=== PATIENT | male | born 1965 | race Caucasian/White ===

== ENCOUNTER 2021-04-04 13:48 | Observation (INO) | payer MEDICAID ==
[~2021-04-04] VITALS: Ht 180.3 cm; Wt 86.8 kg
[2021-04-04 15:05] LABS: BASO # 0.1 K/mm3 (0.0-0.2); BASO % 0.7 % (0.0-2.0); EOS # 0.2 K/mm3 (0.0-0.7); EOS % 2.5 % (0.0-4.0); GRAN # 6.1 K/mm3 (1.4-6.5); GRAN % 65.5 % (42.2-75.2); HEMATOCRIT 39.7 % (42.0-52.0); HEMOGLOBIN 13.6 g/dl (13.5-18.0); LYMPH # 2.3 K/mm3 (1.2-3.4); LYMPH % 24.7 % (20.0-51.0); MEAN CELL VOLUME 85 fl (80.0-100.0); MEAN CORPUSCULAR HEMOGLOBIN 29 pg (27-31); MEAN CORPUSCULAR HGB CONC 34 g/dl (33.0-37.0); MEAN PLATELET VOLUME 10.2 fl (7.4-10.4); MONO # 0.6 K/mm3 (0.1-0.6); MONO % 6.2 % (1.7-9.3); PLATELET COUNT 266 K/mm3 (130-400); RED BLOOD COUNT 4.68 M/mm3 (4.20-5.60); REDCELL DISTRIBUTION WIDTH-CV 13.1 % (11.5-14.5)
[2021-04-04 15:10] LABS: INR 1.1 (0.8-3.0); PROTHROMBIN TIME 11.9 SECONDS (9.7-12.8)
[2021-04-04 15:13] LABS: PARTIAL THROMBOPLASTIN TIME 31.5 SECONDS (26.0-37.0)
[2021-04-04 15:18] LABS: ALBUMIN 3.5 gm/dL (3.5-5.0); BILIRUBIN,TOTAL 0.4 mg/dL (0.2-1.2); CALCIUM 8.7 mg/dL (8.4-10.2); CREATININE, serum 1.09 mg/dL (0.72-1.25); TOTAL PROTEIN 7.4 gm/dL (6.2-8.1)
[2021-04-04 15:27] LABS: TROPONIN-I 0.049 ng/mL (0.00-0.033)
[2021-04-04 17:52] LABS: TRICYCLIC ANTIDEPRESS URINE NEGATIVE
[2021-04-04 22:40] VITALS: BP 157/90; PULSE 103; TEMP 98.3
[2021-04-04] MEDS ORDERED: MUCINEX 60600 MG/TA1 PO (22:42)
[2021-04-04] MEDS ORDERED: VITAMINC500CH (22:43)
--- NOTE | 2021-04-05 00:24 | NUR ---
PATIENT UP TO ROOM 350 AT 2130. SPENT ABOUT AN HOUR ON THE TOILET TRYING TO HAVE A BM. STATES HE HAD A SMALL BROWN BM. ASSESSMENT AND MED RX COMPLETED. BARBER TO DD WITH CLEAR YELLOW URINE OUTPUT. TELE APPLIED. 20 G TO R AC PATENT AND FLUSHES EASILY. LABORED BREATHING NOTED WITH COARSE LUNG SOUNDS. CALL LIGHT WITHIN REACH.
[2021-04-05 04:06] VITALS: BP 149/88; PULSE 99; TEMP 97.3
--- NOTE | 2021-04-05 06:50 | NUR ---
awake resting in bed, bedside shift report received from DORIS Anderson
[2021-04-05 07:15] LABS: BASO % 0.1 % (0.0-2.0); GRAN # 6.6 K/mm3 (1.4-6.5); HEMATOCRIT 40.5 % (42.0-52.0); LYMPH # 0.6 K/mm3 (1.2-3.4); LYMPH % 7.8 % (20.0-51.0); MEAN CELL VOLUME 84 fl (80.0-100.0); MEAN CORPUSCULAR HEMOGLOBIN 29 pg (27-31); MEAN CORPUSCULAR HGB CONC 35 g/dl (33.0-37.0); MEAN PLATELET VOLUME 10.8 fl (7.4-10.4); MONO # 0.1 K/mm3 (0.1-0.6); MONO % 1.8 % (1.7-9.3); PLATELET COUNT 303 K/mm3 (130-400); RED BLOOD COUNT 4.82 M/mm3 (4.20-5.60); REDCELL DISTRIBUTION WIDTH-CV 12.9 % (11.5-14.5)
[2021-04-05 07:33] LABS: CALCIUM 9.1 mg/dL (8.4-10.2); CHOLESTEROL RISK RATIO 3.3; CREATININE, serum 1.13 mg/dL (0.72-1.25)
[2021-04-05 07:38] VITALS: BP 154/89; PULSE 91; TEMP 97.3
--- NOTE | 2021-04-05 08:30 | NUR ---
awake reting in bed and has had breakfast and tolerated well, full assessment completed, see interventions for further info, bowie catheter discontinued, explained to him the importance of using the urinal and letting staff know so his output can be recorded, verbalizes understanding
--- NOTE | 2021-04-05 10:40 | NUR ---
appears to be dozing, awakened and given meds, given paiten teducation on amlodipine
[2021-04-05 11:14] VITALS: BP 134/78; PULSE 93; TEMP 97.3
--- NOTE | 2021-04-05 11:44 | NUR ---
Dr George in to see patient
--- NOTE | 2021-04-05 11:59 | NUR ---
First visit from the retail warehouse supervisor. No needs right now.
--- NOTE | 2021-04-05 13:08 | NUR ---
appears to be sleeping, in bed with eyes closed, resp quiet and easy
--- NOTE | 2021-04-05 13:44 | NUR ---
sitting up in bed eating lunch, denies needs
--- NOTE | 2021-04-05 15:36 | NUR ---
in bed reviewing CHF information given to him yesterday, informed him hospitalist wants him to stay another day, revebalizes understanding, friend at bedside
[2021-04-05 15:47] VITALS: BP 134/69; PULSE 96; TEMP 97.2
--- NOTE | 2021-04-05 16:02 | NUR ---
Group Exercise Instructor attempted to meet with patient but was unable to wake him up. SW will follow up again tomorrow.
--- NOTE | 2021-04-05 17:12 | NUR ---
remains resting in bed visiting with his female friend
--- NOTE | 2021-04-05 18:14 | NUR ---
sitting up eating supper
--- NOTE | 2021-04-05 18:57 | NUR ---
bedside shift report given to DORIS Flores
[2021-04-05 20:33] VITALS: BP 144/72; PULSE 110; TEMP 97.9
--- NOTE | 2021-04-05 21:00 | NUR ---
Pt resting in bed upon entering room. Pts SO was in bed with him. Explained the visitation policy with them. She was understandable and got up and started gathering her belongings. Pt was very upset. Stated she wasn't hurting anything and that she was not safe to drive and wasn't suppose to be driving. He stated that it was going to be our fault if she gets in a wreck on her way home. Pt is unhappy about being here stating we are just keeping him another day to get more money. Pt went on for quite some time this way, I stated that we were not holding him here just to get his money. SO then started to make comments that I shouldn't be saying things like that in my profession. Pt continued on with comments about her not being able to stay, how she shouldn't be driving and that she doesn't even know her way around. I went on with my assessment, freshing ice water etc. Upon completing, asked pt if there was anything he needed. Pt did request a breathing treatment in which I did call RT.
[2021-04-06 00:29] VITALS: BP 134/66; PULSE 87; TEMP 97.8
[2021-04-06 04:25] VITALS: BP 141/72; PULSE 82; TEMP 97.9
--- NOTE | 2021-04-06 06:14 | NUR ---
Pt slept throughout the night, no needs verbalized
[2021-04-06 07:19] VITALS: BP 128/65; PULSE 90; TEMP 97.4
--- NOTE | 2021-04-06 08:33 | NUR ---
Pt assessment complete. Pt sleeping in bed upon entry, but arouses to voice. He is A/O x4. His breathing is even and unlabored on RA. Pt reports some dyspnea with exertion. Denies any pain at this time. No N/V. POC discussed with patient as well as accurate I&O's, he verbalizes understanding. Pt has no further needs at this time. Call light wtihin reach.
--- NOTE | 2021-04-06 09:24 | NUR ---
Lead Recreation Assistant and SW student met with patient to discuss discharge planning. Patient lives in a camper outside of [place] with his girlfriend, Alysha. Patient does not have a current primary care physician or take any regular medications. Patient does not use any DME and is independent with ADLS. Patient does not have advance directives. Patient states he is not currently and is a . Patient has one adult child, Yeimi Leung who lives in [place]. Patient advised he does not have her most recent phone number, he just contacts her through [employer]. Patient reports his sister, Lin (ph#[phone]) lives here in [place] with their mother, Ida Castillo, who patient reports is in poor health. Patient does not wish to complete DPOA-HC at this time. SW addressed patient's positive UDS for methamphetamines. Patient is not interested in any drug and alcohol resources at this time. Patient plans to return home upon discharge. Discharge Plan: Home
[2021-04-06] MEDS ORDERED: NICODERM C21 MG/PATC TD (10:30)
[2021-04-06] MEDS ORDERED: LIPITOR 40MG TA40 MG PO (10:30)
[2021-04-06] MEDS ORDERED: PRINIVIL10 MG PO (10:30)
[2021-04-06] MEDS ORDERED: LASIX 20MG TABL20 MG PO (10:31)
[2021-04-06] MEDS ORDERED: ASPIRIN E.C. 8181 MG PO (10:31)
--- NOTE | 2021-04-06 12:07 | NUR ---
Discharge instructions and paperwork reviewed with patient. All questions answered at this time. IV to RAC dc'd catheter tip intact. Pt walked out of facility by staff at this time.
== END 2021-04-06 12:08 | disposition home or self-care (01) ==
LOC: COL.ER 13:48 → SURG 15:47
PROVIDERS: Emergency Medicine; Physician Assistant; ADMIT Student in an Organized Health Care Education/Training Program
DX: I11.0 Hypertensive heart disease with heart failure (principal); I50.21 Acute systolic (congestive) heart failure; R79.89 Other specified abnormal findings of blood chemistry; I71.4 Abdominal aortic aneurysm, without rupture; E78.5 Hyperlipidemia, unspecified; F17.210 Nicotine dependence, cigarettes, uncomplicated; F12.90 Cannabis use, unspecified, uncomplicated; F15.10 Other stimulant abuse, uncomplicated; Z20.822 Contact with and (suspected) exposure to COVID-19; T38.0X6A Underdosing of glucocorticoids and synthetic analogues, initial encounter; Z91.128 Patient's intentional underdosing of medication regimen for other reason
CPT/HCPCS: 99222-AI; 99239; A4314; G0378; J0456; J1650; J1940; J2930; J7050; J7512; Q9967

== ENCOUNTER → 2021-06-06 | Outpatient (CLI) | payer SELFPAY ==
[~2021-06-06] VITALS: Ht 180.3 cm; Wt 83.2 kg
[~2021-06-06] MED LIST: ASPIRIN 81M81 MG/TA2 PO; ASPIRIN E.C. 8181 MG PO; LASIX 20MG TABL20 MG PO; LIPITOR 40MG TA40 MG PO; MUCINEX 60600 MG/TA1 PO; NICODERM C21 MG/PATC TD; PRINIVIL10 MG PO; TOPROL XL 25MG25 MG PO; VITAMINC500CH
[2021-06-06 12:48] VITALS: BP 147/83; PULSE 84
[2021-06-06 12:49] VITALS: BP 145/84; PULSE 83
[2021-06-06 12:50] VITALS: BP 146/85; PULSE 82
[2021-06-06 12:51] VITALS: BP 135/85; PULSE 76
== END ==
LOC: COL.CARD 10:45
DX: I50.20 Unspecified systolic (congestive) heart failure (principal)
CPT/HCPCS: A9500; J2785

== ENCOUNTER → 2021-06-28 | Outpatient (CLI) | payer SELFPAY | LOC: COL.VAS 14:15 | DX: I11.0 Hypertensive heart disease with heart failure (principal); I50.20 Unspecified systolic (congestive) heart failure ==

== ENCOUNTER 2021-09-10 03:22 | Emergency (ER) | payer SELFPAY ==
[~2021-09-10] VITALS: Ht 177.8 cm; Wt 81.8 kg
[2021-09-10 03:34] VITALS: TEMP 97.4
[2021-09-10 04:05] LABS: COLLECTION METHOD CLEAN CATCH
[2021-09-10 04:08] LABS: BASO # 0.1 K/mm3 (0.0-0.2); BASO % 1.1 % (0.0-2.0); EOS # 0.2 K/mm3 (0.0-0.7); EOS % 2.5 % (0.0-4.0); GRAN % 46.3 % (42.2-75.2); HEMATOCRIT 43.1 % (42.0-52.0); HEMOGLOBIN 15.1 g/dl (13.5-18.0); LYMPH # 3.5 K/mm3 (1.2-3.4); LYMPH % 40.9 % (20.0-51.0); MEAN CELL VOLUME 84 fl (80.0-100.0); MEAN CORPUSCULAR HEMOGLOBIN 30 pg (27-31); MEAN CORPUSCULAR HGB CONC 35 g/dl (33.0-37.0); MEAN PLATELET VOLUME 9.8 fl (7.4-10.4); MONO # 0.8 K/mm3 (0.1-0.6); PLATELET COUNT 273 K/mm3 (130-400); RED BLOOD COUNT 5.11 M/mm3 (4.20-5.60); REDCELL DISTRIBUTION WIDTH-CV 12.4 % (11.5-14.5)
[2021-09-10 04:14] LABS: MUCOUS Present (NOT PRESENT); PH 5 (5-8); SQUAMOUS EPITHELIAL None Seen /hpf (0-10); URINE APPEARANCE Hazy (CLEAR/HAZY); URINE BACTERIA None Seen /hpf (NONE SEEN); URINE BILIRUBIN Negative (NEGATIVE); URINE BLOOD Negative (NEGATIVE); URINE COLOR Yellow (YELLOW); URINE GLUCOSE Negative (NEGATIVE); URINE KETONE Trace (NEGATIVE); URINE LEUKOCYTE ESTERASE Negative (NEGATIVE); URINE NITRATE Negative (NEGATIVE); URINE PROTEIN(semi-quant) Negative (NEGATIVE); URINE RBC None Seen /hpf (0-2)
[2021-09-10 04:28] LABS: ALBUMIN 3.9 gm/dL (3.5-5.0); BILIRUBIN,TOTAL 0.4 mg/dL (0.2-1.2); CALCIUM 9.6 mg/dL (8.4-10.2); CREATININE, serum 1.36 mg/dL (0.72-1.25); POTASSIUM 3.6 mmol/L (3.5-4.5)
[2021-09-10] MEDS ORDERED: MIRALAX PA17 GM/Dose PO (06:41)
[2021-09-10 07:00] VITALS: BP 123/67; PULSE 69
== END 2021-09-10 07:00 | disposition home or self-care (01) ==
LOC: COL.ER 03:22
PROVIDERS: Emergency Medicine
DX: K59.00 Constipation, unspecified (principal); R94.4 Abnormal results of kidney function studies; Z28.310 Unvaccinated for COVID-19
CPT/HCPCS: J1885; J2270; J2405; J7030; Q9967

== ENCOUNTER 2023-07-10 01:48 | Emergency (ER) | payer OTHER, MEDICAID ==
[~2023-07-10] VITALS: Ht 180.3 cm; Wt 86.4 kg
[~2023-07-10 01:48] MED LIST changes: +CEFTIN500 MG PO; +MIRALAX PA17 GM/Dose PO; +PROAIR HFA0.09 MG/AC IH; +TAMIFLU 75MG75 MG PO
[2023-07-10 01:56] VITALS: TEMP 98.1
[2023-07-10] MEDS ORDERED: Morphine 4 MG/ML VIAL IV ONE ×2 (02:15→03:15)
[2023-07-10] MEDS ORDERED: NS 1,000 ML IV ONE (02:15)
[2023-07-10] MEDS ORDERED: Ondansetron 4 MG/2 ML VIAL IV ONE (02:15)
[2023-07-10 02:27] LABS: COLLECTION METHOD CLEAN CATCH
[2023-07-10 02:33] LABS: URINE APPEARANCE CLEAR (CLEAR/HAZY); URINE BLOOD NEGATIVE (NEGATIVE); URINE COLOR YELLOW (YELLOW); URINE GLUCOSE NEGATIVE (NEGATIVE); URINE KETONE NEGATIVE (NEGATIVE); URINE NITRATE NEGATIVE (NEGATIVE); URINE PROTEIN(semi-quant) NEGATIVE (NEGATIVE)
[2023-07-10 02:34] LABS: BASO # 0.1 K/mm3 (0.0-0.2); BASO % 0.6 % (0.0-2.0); EOS # 0.2 K/mm3 (0.0-0.7); EOS % 2.1 % (0.0-4.0); GRAN # 6.9 K/mm3 (1.4-6.5); GRAN % 72.8 % (42.2-75.2); HEMATOCRIT 42.9 % (42.0-52.0); HEMOGLOBIN 14.9 g/dl (13.5-18.0); LYMPH # 1.7 K/mm3 (1.2-3.4); LYMPH % 17.6 % (20.0-51.0); MEAN CELL VOLUME 88 fl (80.0-100.0); MEAN CORPUSCULAR HEMOGLOBIN 31 pg (27-31); MEAN CORPUSCULAR HGB CONC 35 g/dl (33.0-37.0); MONO # 0.6 K/mm3 (0.1-0.6); MONO % 6.4 % (1.7-9.3); PLATELET COUNT 274 K/mm3 (130-400); RED BLOOD COUNT 4.86 M/mm3 (4.20-5.60); REDCELL DISTRIBUTION WIDTH-CV 13.2 % (11.5-14.5)
[2023-07-10 02:49] LABS: ALBUMIN 3.5 g/dL (3.5-5.0); BILIRUBIN,TOTAL 0.4 mg/dL (0.2-1.2); CALCIUM 9.4 mg/dL (8.4-10.2); CREATININE, serum 1.42 mg/dL (0.72-1.25); POTASSIUM 4.4 mEq/L (3.5-4.5); TOTAL PROTEIN 7.3 g/dl (6.2-8.1)
[2023-07-10] MEDS ORDERED: NS 100 ML IV SCH (03:09)
[2023-07-10] MEDS ORDERED: Iodixanol-320 100 ML BOTTLE IV ONE (03:09)
[2023-07-10 03:19] LABS: C-REACTIVE PROTEIN 2.39 mg/dL (0.00-0.50); MAGNESIUM 1.8 mg/dL (1.6-2.6)
[2023-07-10] MEDS ORDERED: LIDODERM 5% PATC1 EA TP (04:02)
[2023-07-10] MEDS ORDERED: FLEXERIL 1010 MG/TAB PO (04:02)
[2023-07-10 04:07] VITALS: BP 108/65; PULSE 80
[2023-07-10] MEDS ORDERED: Lidocaine 4% Topical Patch TP ONE (04:15)
[2023-07-10] MEDS ORDERED: Cyclobenzaprine 10 MG TAB PO ONE (04:15)
== END 2023-07-10 04:24 | disposition home or self-care (01) ==
LOC: COL.ER 01:48
PROVIDERS: Emergency Medicine
DX: S39.012A Strain of muscle, fascia and tendon of lower back, initial encounter (principal); X58.XXXA Exposure to other specified factors, initial encounter
CPT/HCPCS: J2270; J2405; J7030; Q9967

== ENCOUNTER 2023-07-16 19:15 | Emergency (ER) | payer OTHER, MEDICAID ==
[~2023-07-16] VITALS: Ht 177.8 cm; Wt 86.4 kg
[~2023-07-16 19:15] MED LIST changes: +FLEXERIL 1010 MG/TAB PO; +LIDODERM 5% PATC1 EA TP
[2023-07-16 19:20] VITALS: TEMP 98.3
[2023-07-16] MEDS ORDERED: Albuterol/Ipratropium 3 MG-0.5 MG/3 ML Neb Soln IH ONE (20:00)
[2023-07-16 20:07] LABS: BASO # 0.1 K/mm3 (0.0-0.2); BASO % 0.9 % (0.0-2.0); EOS # 0.1 K/mm3 (0.0-0.7); EOS % 1.6 % (0.0-4.0); GRAN # 6.2 K/mm3 (1.4-6.5); GRAN % 72.1 % (42.2-75.2); HEMATOCRIT 40.1 % (42.0-52.0); HEMOGLOBIN 13.6 g/dl (13.5-18.0); LYMPH # 1.6 K/mm3 (1.2-3.4); LYMPH % 18.8 % (20.0-51.0); MEAN CELL VOLUME 91 fl (80.0-100.0); MEAN CORPUSCULAR HEMOGLOBIN 31 pg (27-31); MEAN CORPUSCULAR HGB CONC 34 g/dl (33.0-37.0); MEAN PLATELET VOLUME 10.6 fl (7.4-10.4); MONO # 0.5 K/mm3 (0.1-0.6); PLATELET COUNT 261 K/mm3 (130-400); RED BLOOD COUNT 4.43 M/mm3 (4.20-5.60); REDCELL DISTRIBUTION WIDTH-CV 13.8 % (11.5-14.5)
[2023-07-16 20:25] LABS: ALANINE AMINOTRANSFERASE 64 U/L (0-55); ALBUMIN 3.6 g/dL (3.5-5.0); ALCOHOL(ethanol),MEDICAL < 10 mg/dL (0-10); ALKALINE PHOSPHATASE 102 U/L (40-150); ANION GAP 12 mmol/L (7-16); AST,SGOT 59 U/L (5-34); BILIRUBIN,TOTAL 0.4 mg/dL (0.2-1.2); BLOOD UREA NITROGEN 27 mg/dL (8-26); C-REACTIVE PROTEIN 1.92 mg/dL (0.00-0.50); CALCIUM 9.4 mg/dL (8.4-10.2); CHLORIDE 107 mEq/L (98-107); GLUCOSE 72 mg/dL (70-99); MAGNESIUM 2.1 mg/dL (1.6-2.6); POTASSIUM 4.8 mEq/L (3.5-4.5); SODIUM 140 mEq/L (136-145); TOTAL PROTEIN 7.8 g/dl (6.2-8.1)
[2023-07-16 20:30] LABS: PROTHROMBIN TIME 10.9 SECONDS (9.7-12.8)
[2023-07-16 20:31] LABS: TROPONIN-I 0.021 ng/mL (0.00-0.033)
[2023-07-16 20:33] LABS: PARTIAL THROMBOPLASTIN TIME 31.7 SECONDS (26.0-37.0)
[2023-07-16] MEDS ORDERED: Albuterol/Ipratropium 3 MG-0.5 MG/3 ML Neb Soln IH SCH (22:00)
[2023-07-16] MEDS ORDERED: predniSONE 20 MG TAB PO ONE (22:45)
[2023-07-16] MEDS ORDERED: levoFLOXacin 750 MG TAB PO ONE (22:45)
[2023-07-16] MEDS ORDERED: LEVAQUIN 750MG750 M1 PO (22:54)
[2023-07-16] MEDS ORDERED: PREDNISONE20 MG PO (22:54)
[2023-07-16 23:19] VITALS: BP 133/84; PULSE 80
== END 2023-07-16 23:20 | disposition home or self-care (01) ==
LOC: COL.ER 19:15
PROVIDERS: Emergency Medicine
DX: R41.82 Altered mental status, unspecified (principal); J44.1 Chronic obstructive pulmonary disease with (acute) exacerbation; F17.200 Nicotine dependence, unspecified, uncomplicated
CPT/HCPCS: J7512

== ENCOUNTER 2023-08-23 15:54 | Inpatient (IN) | payer MEDICAID ==
[~2023-08-23] VITALS: Ht 177.8 cm; Wt 86.0 kg
[~2023-08-23 15:54] MED LIST changes: +LEVAQUIN 750MG750 M1 PO; +PREDNISONE20 MG PO
[2023-08-23] MEDS ORDERED: ACYCLOVIR IV ONE (16:45)
[2023-08-23] MEDS ORDERED: NS IV ONE (16:45)
[2023-08-23] MEDS ORDERED: cefTRIAXone 2 G in Water For Injection,Sterile 20 ML IV SCH (17:00)
[2023-08-23] MEDS ORDERED: cefTRIAXone 2 G in Water For Injection,Sterile 20 ML IV ONE (17:15)
[2023-08-23 17:19] LABS: BASO # 0.1 K/mm3 (0.0-0.2); BASO % 0.6 % (0.0-2.0); EOS % 0.3 % (0.0-4.0); GRAN # 7.9 K/mm3 (1.4-6.5); GRAN % 88.1 % (42.2-75.2); HEMATOCRIT 41.1 % (42.0-52.0); HEMOGLOBIN 14.6 g/dl (13.5-18.0); LYMPH # 0.7 K/mm3 (1.2-3.4); MEAN CELL VOLUME 87 fl (80.0-100.0); MEAN CORPUSCULAR HEMOGLOBIN 31 pg (27-31); MEAN CORPUSCULAR HGB CONC 36 g/dl (33.0-37.0); MONO # 0.2 K/mm3 (0.1-0.6); MONO % 2.3 % (1.7-9.3); PLATELET COUNT 290 K/mm3 (130-400); RED BLOOD COUNT 4.74 M/mm3 (4.20-5.60); REDCELL DISTRIBUTION WIDTH-CV 12.7 % (11.5-14.5)
[2023-08-23] MEDS ORDERED: Ondansetron 4 MG/2 ML VIAL IV ONE (17:45)
[2023-08-23 18:05] LABS: ERYTHROCYTE SEDIMENTATION RATE 31 mm/hr (0-30)
[2023-08-23] MEDS ORDERED: NS 1,000 ML IV ONE (18:45)
[2023-08-23] MEDS ORDERED: Acetaminophen 325 MG TAB PO PRN (20:45)
[2023-08-23] MEDS ORDERED: Ondansetron 4 MG/2 ML VIAL IV PRN (20:45)
[2023-08-23] MEDS ORDERED: NS 1,000 ML IV SCH (20:45)
[2023-08-23] MEDS ORDERED: Sennosides/Docusate 8.6-50 MG TAB PO SCH (21:00)
[2023-08-23] MEDS ORDERED: MULTI-VITAMIN W1 TA1 PO (21:04)
[2023-08-23] MEDS ORDERED: NATURAL POTASS595 MG PO (21:06)
[2023-08-23 21:15] VITALS: BP 128/56; PULSE 71; TEMP 97.7
[2023-08-23] MEDS ORDERED: Nicotine 21 MG DAILY PATCH TD SCH (21:31)
[2023-08-23] MEDS ORDERED: Atorvastatin 40 MG TAB PO SCH (21:42)
[2023-08-23] MEDS ORDERED: hydrOXYzine HCl 25 MG TAB PO PRN (21:45)
[2023-08-23] MEDS ORDERED: traZODone 100 MG TAB PO SCH (21:45)
[2023-08-23 22:02] LABS: CSF APPEARANCE CLEAR; CSF COLOR COLORLESS; CSF RBC 11 /mm3 (0-0)
[2023-08-23 22:03] LABS: CSF APPEARANCE CLEAR; CSF COLOR COLORLESS; CSF MONONUCLEAR 0 % (70-100); CSF POLYMORPHONUCLEAR 100 % (0-6)
[2023-08-23 22:04] LABS: CSF MONONUCLEAR 14 % (70-100); CSF POLYMORPHONUCLEAR 86 % (0-6); CSF RBC 0 /mm3 (0-0)
[2023-08-23 23:21] VITALS: BP 124/58; PULSE 69; TEMP 98.1
--- NOTE | 2023-08-23 23:22 | NUR ---
RECIEVED REPORT FROM ED, PT ARRIVED TO UNIT VIA WHEELCHAIR AROUD 2044 ACCOMPANIED BY HIS LADY FRIEND SHOAIB. PT ALERT AND ORIENTED THIS NURSE ORIENTED PT TO ROOM AND CALL LIGHT SYSTEM.PT WOMAN FRIEND ABLE TO HELP WITH MED REQ AND SOME HEALTH HX. PT PRESENTS WITH MILD APHASIA BUT WITH TIME HE IS ABLE TO FORMULATE WHAT HE WANTS TO SAY. LUNG SOUNS CLEAR WITH DIMINISHED BASES, DENIES ANY PAIN AT THIS TIME. ON ROOM AIR WITH PATENT PERIPHERAL IV SITE TO LFA. ON CONTACT ISOLATION, SEIZURE PRECAUTIONS IN PLACE, FALL PRECAUTIONS IN PLACE.INCREASING ANXIETY NOTED. PT DOES HAVE MULTIPLE TATTOOS ON ANTERIOR CHEST AND UPPER EXTREMEITES WELL HIS BACK. TELEMETRY MONITORING IN PLACE NSR AT THIS TIME. CALL LIGHT WITHIN REACH.
[2023-08-24] VITALS (8 sets, daily range): BP systolic 115–145; BP diastolic 50–70; PULSE 65–81; TEMP 97.7–98.2
[2023-08-24] MEDS ORDERED: ACYCLOVIR IV SCH (02:00)
[2023-08-24] MEDS ORDERED: NS IV SCH (02:00)
[2023-08-24] MEDS ORDERED: cefTRIAXone 2 G in Water For Injection,Sterile 20 ML IV SCH (05:00)
[2023-08-24 06:31] LABS: BASO % 0.3 % (0.0-2.0); EOS % 0.3 % (0.0-4.0); GRAN # 9.7 K/mm3 (1.4-6.5); GRAN % 81.2 % (42.2-75.2); HEMATOCRIT 40.4 % (42.0-52.0); HEMOGLOBIN 14.4 g/dl (13.5-18.0); LYMPH # 1.5 K/mm3 (1.2-3.4); LYMPH % 12.5 % (20.0-51.0); MEAN CELL VOLUME 88 fl (80.0-100.0); MEAN CORPUSCULAR HEMOGLOBIN 31 pg (27-31); MEAN CORPUSCULAR HGB CONC 36 g/dl (33.0-37.0); MONO # 0.6 K/mm3 (0.1-0.6); MONO % 5.2 % (1.7-9.3); PLATELET COUNT 289 K/mm3 (130-400); RED BLOOD COUNT 4.61 M/mm3 (4.20-5.60); REDCELL DISTRIBUTION WIDTH-CV 12.7 % (11.5-14.5)
[2023-08-24] MEDS ORDERED: Lisinopril 10 MG TAB PO SCH (09:00)
[2023-08-24] MEDS ORDERED: Nicotine 21 MG DAILY PATCH TD SCH (09:00)
[2023-08-24] MEDS ORDERED: Vancomycin 2 GM,Special Dose/Pharmacy Prepared 2 GM in NS 500 ML IV SCH (09:00)
[2023-08-24] MEDS ORDERED: BREZTRI AEROS10.7 GM IH (12:46)
[2023-08-24] MEDS ORDERED: ALDACTONE50 MG PO (12:47)
[2023-08-24] MEDS ORDERED: WELLBUTRIN XL150 MG PO (12:47)
--- NOTE | 2023-08-24 13:23 | NUR ---
central supply worker notes pt is in isolation for meningitis/herpes. SW called pt's room phone x2 with no success. SW called pt's personal phone and left voicemail. RAYMON asked Shameka Dupree to ensure pt has access to his room phone so SW to call. SW called pt's room phone and completed intake assessment. Pt reports he lives with his girlfriend in [place]. He sees ANDRE Goncalves and obtains medications from [facility] with no difficulties. He confirmed his contact as his sister, Lin [phone]. He reports to be independent with ADLS and uses no DME. He states he usually gets around fine. He does not have a DPOA-HC. RAYMON spoke with DORIS Hutchinson as pt does not have PT/OT orders. She reports pt sits at the side of the bed and is awaiting lumbar results. Discharge Plan: tbd
[2023-08-24] MEDS ORDERED: Cetirizine 10 MG TAB PO SCH (14:37)
--- NOTE | 2023-08-24 14:38 | NUR ---
ANDRE Musa notified of run [address] Argueta in the room with Dimple.
[2023-08-24 18:00] LABS: TRICYCLIC ANTIDEPRESS URINE NEGATIVE (NEGATIVE)
--- NOTE | 2023-08-24 18:05 | NUR ---
Patient sitting up in the recliner. A&Ox4. VSS. IV CDI, fluids infusing. Droplet/contact precautions in place. Denies pain and discomfort. Call light within reach
--- NOTE | 2023-08-24 20:45 | NUR ---
Initial shift assessment done- denies pain, alert/oriented x4 at this time, states his memory is not right still, VSS, significant other at bedside, will be leaving for the night here soon, Tele on- NSR, IV fluids of NS at 75cc/hr, siderail pads on bed for seizure precautions, has a raspy voice, on contact/droplet precautions, o2 sats good, on room air, when asked if SOB, pt states yes at time-states he has to think about taking deep breaths, was given an HS snack. No other requests.
[2023-08-24] MEDS ORDERED: Vancomycin 1.5 GM,Special Dose/Pharmacy Prepared 1.5 GM in NS 250 ML IV SCH (21:00)
[2023-08-25] VITALS (7 sets, daily range): BP systolic 141–149; BP diastolic 66–79; PULSE 66–81; TEMP 97.8–98.7
--- NOTE | 2023-08-25 06:01 | NUR ---
Did sleep very well all night- {did give the prn atarax before bed last night} did end up letting the fiancee stay the night but understands that was just for last night, IV fluids remain at 75cc/hr, Up to bathroom a couple times this shift, needs one assist- unerstands to call for assist.
[2023-08-25 07:01] LABS: BASO % 0.5 % (0.0-2.0); EOS # 0.2 K/mm3 (0.0-0.7); EOS % 2.1 % (0.0-4.0); GRAN # 6.3 K/mm3 (1.4-6.5); LYMPH # 1.8 K/mm3 (1.2-3.4); LYMPH % 20.8 % (20.0-51.0); MEAN CELL VOLUME 86 fl (80.0-100.0); MEAN CORPUSCULAR HEMOGLOBIN 31 pg (27-31); MEAN CORPUSCULAR HGB CONC 36 g/dl (33.0-37.0); MEAN PLATELET VOLUME 9.8 fl (7.4-10.4); MONO # 0.5 K/mm3 (0.1-0.6); MONO % 5.1 % (1.7-9.3); PLATELET COUNT 253 K/mm3 (130-400); RED BLOOD COUNT 4.19 M/mm3 (4.20-5.60); REDCELL DISTRIBUTION WIDTH-CV 12.8 % (11.5-14.5)
[2023-08-25 07:12] LABS: HEMATOCRIT 36.2 % (42.0-52.0)
[2023-08-25 07:24] LABS: CALCIUM 8.8 mg/dL (8.4-10.2); CREATININE, serum 1.1 mg/dL (0.72-1.25); POTASSIUM 4.5 mEq/L (3.5-4.5)
--- NOTE | 2023-08-25 10:16 | NUR ---
DR. RAJNI BARAHONA ASKED ME TO CALL MICRO REGARDING PATIENT'S CSF HERPES 1&2 DNA PCR SPECIMEN AND WHY IT WAS CANCELLED. OFFICE CLERK ROUTINE STATED "OH I AM NOT SURE WHY IT WAS CANCELLED, IT WAS NOT US, IT MUST HAVE BEEN A NURSE." I ASKED OFFICE CLERK ROUTINE IF THEY STILL HAD PATIENT'S CSF SAMPLES AND THEY DO AND TECH STATED THAT IF DR. Zayda BARAHONA PUT THE ORDERS IN AGAIN, THEY WOULD BE ABLE TO SEND IT OUT. DR. Zayda BARAHONA NOTIFIED.
--- NOTE | 2023-08-25 10:19 | NUR ---
Patient is resting in bed, alert and oriented x3, obeys verbal commands, have to listen to questions or instructions twice. Family at bedside. Getting fluids and antibiotices per orders. Complans of problems breathing, as when running and have tim SOB. O2 sat 92% at RA. Assessment completed, meds given. No further needs at this time. Call light within reach.
[2023-08-25] MEDS ORDERED: Iohexol 300 - 100 ML VIAL IV ONE (11:36)
[2023-08-25] MEDS ORDERED: NS 100 ML IV SCH (11:36)
--- NOTE | 2023-08-25 14:30 | NUR ---
Patient was provided with discharge information, all questions answered. IV access and telemetrey were discontinued. Pt left room with significant other and SHOT HOLE SHOOTER.
== END 2023-08-25 14:35 | disposition home or self-care (01) | DRG 99 ==
LOC: COL.ER 15:54 → MEDICAL 19:53
PROVIDERS: Family Medicine; Physician Assistant; ADMIT Internal Medicine
DX: A86 Unspecified viral encephalitis (principal); F17.210 Nicotine dependence, cigarettes, uncomplicated; I10 Essential (primary) hypertension; F41.9 Anxiety disorder, unspecified; G47.00 Insomnia, unspecified; R11.0 Nausea; Z79.82 Long term (current) use of aspirin
CPT/HCPCS: J0133; J0696; J1650; J2405; J3370; J7030; J7040; J7050; Q3014; Q9967

== ENCOUNTER → 2023-11-07 | Outpatient (CLI) | payer MEDICAID ==
[~2023-11-07] MED LIST changes: +ALDACTONE50 MG PO; +BREZTRI AEROS10.7 GM IH; +MULTI-VITAMIN W1 TA1 PO; +NATURAL POTASS595 MG PO; +WELLBUTRIN XL150 MG PO
== END ==
LOC: COL.CARD 11:18
DX: I27.20 Pulmonary hypertension, unspecified (principal)
CPT/HCPCS: A9540-JZ; A9567-JZ

== ENCOUNTER 2023-12-24 19:08 | Emergency (ER) | payer MEDICAID ==
[~2023-12-24] VITALS: Ht 180.3 cm; Wt 86.4 kg
[2023-12-24 19:23] VITALS: TEMP 98.5
[2023-12-24] MEDS ORDERED: Tdap Vaccine 0.5 ML SYRINGE IM ONE (22:00)
[2023-12-24] MEDS ORDERED: CEPHALEXIN500 M1 PO (22:11)
[2023-12-24 22:30] VITALS: BP 148/71; PULSE 73
== END 2023-12-24 21:25 | disposition home or self-care (01) ==
LOC: COL.ER 19:08
DX: S01.81XA Laceration without foreign body of other part of head, initial encounter (principal); Z23 Encounter for immunization; W29.0XXA Contact with powered kitchen appliance, initial encounter